=== PATIENT | male | born 1995 | race Caucasian/White ===

== ENCOUNTER 2017-06-19 16:49 | Emergency (ER) | payer BC, SELFPAY ==
[2017-06-19 16:51] VITALS: BP 142/104; PULSE 86; PULSE 90; RESP 14; RESP 17; TEMP 36.5; O2SAT 100; O2SAT 97; BMI 19.9
--- NOTE | 2017-06-19 16:56 | NURSING ---
NO OLD EKGS
--- NOTE | 2017-06-19 17:08 | EKG12_ITS ---
Test Reason : SYNCOPE Blood Pressure : / mmHG Vent. Rate : 079 BPM Atrial Rate : 079 BPM P-R Int : 126 ms QRS Dur : 082 ms QT Int : 354 ms P-R-T Axes : 062 -03 050 degrees QTc Int : 405 ms Normal sinus rhythm Normal ECG Confirmed by DORINA TALLYE, ALISSON ([id number]), editorial intern MIKE COLEMAN ([id number]) on 06/22/2017 8:46:58 AM Referred By: FRANKIE Confirmed By:ALISSON CAM MD
--- NOTE | 2017-06-19 17:34 | RAD_ITS ---
XR Chest 2 Views INDICATION: HAVING SYNCOPAL ESPISODES WITH THE FIRST ONE HAPPENING SIX MONTHS AGO AND THE LAST ONE WAS ON WEDNESDAYHYPERTENSIVE COMPARISON: None FINDINGS: Heart size and pulmonary vascularity are within normal limits. Lungs appear mildly hyperinflated, could be due to atrophy or forceful inspiration. The lungs are clear without evidence of airspace consolidation or pleural effusion. The osseous structures are grossly unremarkable. RAD/Chest PA and Lateral IMPRESSION: No radiographic evidence of acute intrathoracic disease. at 1826 Reported and signed by: Otilia Quinonez MD Electronically Signed: Otilia Quinonez MD at 17:24 EDT Tel , Service support ,
[2017-06-19 17:48] LABS: Absolute Lymphocyte Count 2.54 X10^3/ul (0.83-4.51); Basophil# 0.02 X10^3/uL; Basophil% 0.3 % (0-1); Eosinophil# 0.07 X10^3/uL; Hematocrit 43.4 % (40-54); Hemoglobin 15.1 g/dl (13.0-16.5); Lymphocyte # 2.54 X10^3/ul (4.0); Lymphocyte % 34.9 % (19-41); Mean Corp Hgb Conc 34.8 g/gl (32-36); Mean Corpuscular Hgb 31.1 pg (27.0-32.0); Mean Corpuscular Volume 89.5 fL (80-94); Mean Platelet Vol. 11.2 fl (6.2-12.0); Monocyte# 0.62 X10^3/uL; Monocyte% 8.5 % (0-10); Neutrophil # 4.02 X10^3/uL (2.7-7.7); Neutrophil % 55.3 % (47-70); POSITIVE COUNT NO; POSITIVE DIFFERENTIAL NO; POSITIVE MORPHOLOGY NO; Platelet Count 230 K/mm3 (150-450); RBC Distribution Width SD 38.7 fl (35.1-43.9); Red Blood Count 4.85 M/mm3 (4.6-6.2); White Blood Count 7.3 K/mm3 (4.4-11.0)
[2017-06-19 18:02] LABS: Anion Gap 7 (5-15); BUN 14 mg/dL (7-18); BUN/Creat Ratio 11.5 RATIO (10-20); Calcium,Total 9.2 mg/dL (8.5-10.1); Chloride 104 mmol/L (98-107); Creatinine, Serum 1.22 mg/dL (0.70-1.30); EST Glomerular Filtration Rate 78 mL/min (>60); Est Glom Filt Rate - Afr Amer 95 mL/min (>60); Estimated Creatinine Clearance 84.63 ml/min; Glucose 93 mg/dL (74-106); Potassium 4.3 mmol/L (3.5-5.1); Sodium Level 141 mmol/L (136-145); Thyroid Stim Hormone (TSH) 2.85 uIU/mL (0.358-3.74)
--- NOTE | 2017-06-19 18:24 | ED.VISSUMM ---
- ER Visit Summary Date of Service: 06/19/17 Chief Complaint: Syncope and difficulty waking up in the mornings History of Present Illness: The patient is a 21 M states that he had a syncopal episode on Wednesday of this week. He states he thinks he hit his nose as he had a little bit of a bloody nose but otherwise feels back to his normal self. 8 months ago he had a syncopal episode. He went to his doctor who practice is out of town. He had blood work done. States that he was found to have hypothyroidism was placed on Synthroid. Through a series of events he eventually stopped this medication. At the request of his mother he came to the emergency department today. He states he otherwise feels okay. One thing that he finds that it is bothersome to him is that he can sleep for 12 or 14 hours and has a hard time waking up and getting to work on time. Physical Examination: Afebrile vital signs are stable Gen: Well-nourished well-developed Head: Normocephalic atraumatic Eyes: Perrl EOMI ENT: TMs clear no rhinorrhea moist mucous membranes Neck: Supple no lymphadenopathy no JVD nontender CVS: Regular rate rhythm no murmurs normal S1-S2 Respiratory: No distress clear to auscultation bilaterally chest nontender Abdomen: Soft nontender nondistended normal bowel sounds no masses Back: Nontender Extremity: Nontender no edema Skin: Normal color no rash Neuro: alert orientated ?3 CN II-XII intact normal strength sensation reflexes gait cerebellar Psych: Normal affect normal mood Test Results: EKG shows a sinus rhythm at a rate of 79. Normal intervals. CBC chemistries were normal. Chest x-ray showed a normal mediastinal silhouette. Emergency Department Course and Treatment: [] Impression: 1. Reported syncope This note was generated with [employer] dictation software. It may contain incorrect words, spelling, and punctuation that were not noted in review of the chart prior to signing ED Disposition - Plan for ED Patient: Disposition: Home or Assisted Living Chief Complaint: Syncope Instructions: ED Fainting Unkn Cause Referrals: Louie Falk MD [Primary Care Provider] - As soon as possible Additional Instructions: Your symptoms of syncope and difficulty waking after sleeping will need further workup on an outpatient basis. He will need to work with your primary care doctor to evaluate this over several visits.
[2017-06-19 18:37] LABS: Amphetamine Urine VISTA NEGATIVE (<1000 ng/mL); Barbiturate Urine VISTA NEGATIVE (< 200 ng/mL); Benzodiazepine Urine VISTA NEGATIVE (< 200 ng/mL); Cocaine Urine VISTA NEGATIVE (< 300 ng/mL); Ecstacy Urine VISTA NEGATIVE (< 500 ng/mL); Methadone Urine VISTA NEGATIVE (< 300 ng/mL); PCP Urine VISTA NEGATIVE (< 25 ng/mL); THC Urine VISTA NEGATIVE (< 50 ng/mL); Vista UDS pH Range 7
== END 2017-06-19 18:45 | disposition home or self-care (01) ==
PROVIDERS: Emergency Provider Emergency Medicine; Family Provider Family Medicine; PCP Family Medicine
DX: R55 Syncope and collapse (principal); E03.9 Hypothyroidism, unspecified; Z91.14 Patient's other noncompliance with medication regimen; F17.290 Nicotine dependence, other tobacco product, uncomplicated; Z87.442 Personal history of urinary calculi
CPT/HCPCS: 71046; 80048; 80307; 84443; 85025; 93005; 99285; A4216